=== PATIENT | male | born 1995 | race Caucasian/White ===

== ENCOUNTER 2021-10-28 13:24 | Emergency (ER) | payer BC, SELFPAY ==
[2021-10-28 13:25] VITALS: BP 117/77; PULSE 94; RESP 18; TEMP 36.8; O2SAT 96; BMI 31.5
--- NOTE | 2021-10-28 13:27 | RAD_ITS ---
STUDY: X-RAY CHEST REASON FOR EXAM: Male, 25 years old. SOB TECHNIQUE: AP COMPARISON: None. FINDINGS: There are scattered reticular and consolidative opacities in the right mid lung and right more than left lung base. There is no demonstrated pleural abnormality. Normal size heart. Normal mediastinum and vesta. Normal visualized pulmonary arteries. Normal visualized aortic arch and descending thoracic aorta. Normal visualized thoracic spine. Normal visualized ribs, clavicles, and shoulders. There is no demonstrated abnormality of the visualized soft tissue structures of the upper abdomen. RAD/Chest 1 View IMPRESSION: Patchy pulmonary infiltrates suggesting pneumonia, including viral causes. Electronically Signed: Ky Moody MD (Brooks) at 13:56 EST , Service support ,
--- NOTE | 2021-10-28 15:11 | EX.ED.DYSGE1 ---
HPI History of Present Illness Chief Complaint: Shortness of Breath Informant: patient Narrative Narrative: Patient presents with cough, headache and myalgias. He states he does feel bit short of breath. He started with Covid symptoms on about the . He was tested positive on the . He is also had some intermittent nausea and did vomit once this morning. However, he is drinking fluids now. He has no sputum production or hemoptysis. No leg or arm swelling or pain. No recent travel, surgery, immobilization, personal or family history of DVT or PE. No pleuritic pain. His biggest complaint is that when he takes a deep breath it makes him cough and he has myalgias and headaches. He just overall does not feel well. He denies any medical problems No medicines No allergies No surgeries Non-smoker lives independently. PFSH PFSH Medical History no medical history Home Medications ondansetron 4 mg PO Q8H PRN #10 tab 10/28/21 [Rx Last Taken Unknown] Allergy/AdvReac Type Severity Reaction Status Date / Time No Known Allergies Allergy Verified 10/28/21 13:28 Social History Smoking Status: Never smoker ROS ROS ED Constitutional Constitutional ED: Reports chills, fever(s) and subjective Eyes Eyes: Denies blurry vision ENT ENT ED: Reports rhinorrhea; Denies sore throat Cardiovascular Cardiovascular: Denies chest pain or palpitations Respiratory/Chest Respiratory/Chest: Reports cough and dyspnea; Denies sputum Gastrointestinal Gastrointestinal: Reports nausea and vomiting; Denies abdominal pain or diarrhea Genitourinary Genitourinary ED: Denies dysuria Musculoskeletal Musculoskeletal: Reports myalgias Integumentary Reports rash Neurologic Neurologic: Reports headache(s) Psychiatric Psychiatric: Denies anxiety or depression Endocrine Endocrinology: Denies polydipsia or polyuria Allergic/Immunologic Allergic/Immunologic ED: Denies mouth swelling, tongue swelling or urticaria EXAM Physical Exam Const Vital Signs: 10/28/21 13:25 10/28/21 15:00 Temperature 98.2 F Temperature Source Temporal Pulse Rate 94 Respiratory Rate 18 Respiratory Effort Short of Breath Blood Pressure 117/77 Blood Pressure Mean 90 Pulse Ox 96 Oxygen Delivery Method Room Air Patient sitting on the bed drinking water. He looks comfortable. He does not look dyspneic. I placed him on O2 sat in the room when I walked in. We had him walk next to the bed during my visit. Positive well nourished and well developed General Appearance ED: well developed and NAD; Negative for cyanotic or diaphoretic HEENT Reports moist mucous membranes Negative for trauma Eyes General Eye ED: Negative for pale conjunctiva or scleral icterus Neck no JVD Chest Wall inspection of chest normal Resp normal respiratory effort Resp Narrative: No pain with a deep breath. He does have some mild cold kibe bilaterally. No rales. No wheezing. Occasional mild dry cough while I am in the room. Effort and Inspection: Negative for pain with movement Auscultation: rhonchi; Negative for rales or wheezes Cardio regular rate and regular rhythm GI normal to inspection, nondistended, normoactive bowel sounds and non-tender Palpation: soft Back/Spine no CVA tenderness Extremity normal to inspection General Extremety ED: Negative for edema or tenderness General Extremity: Negative for edema Neuro Sensorium / Orientation: alert Psych mental status grossly normal Skin no rashes or lesions noted MDM MDM MDM Narrative Medical decision making narrative: Patient's x-ray is consistent with Covid. He already has a positive test. During my stay in the room, and the lowest oxygen level I was able to get was 93% and that was briefly. He generally stays at 94%. I do not think he needs admission. Because his BMI is over 25 I will fill out papers for monoclonal therapy. But due to the number of days and heading into a holiday weekend I am not sure he will be able to get this. I will also write for some Zofran as he has had intermittent nausea. Lab Data Attestation: I reviewed the patient's lab results. Radiography Diagnostic Testing: Clinical Impression(s) from Imaging Studies Chest X-Ray 10/28/21 13:27 IMPRESSION: Patchy pulmonary infiltrates suggesting pneumonia, including viral causes. Electronically Signed: Ky Moody MD (Brooks) at 13:56 EST , Service support , Discharge Plan Triage Chief Complaint: Shortness of Breath ED Provider: Jose Lutz Dx/Rx/DC Orders Clinical Impression: Pneumonia due to 2019 novel coronavirus, Nausea & vomiting Instructions: Coronavirus Disease 2019 (COVID-19): Caring for Yourself or Others Prescriptions: New ondansetron 4 mg tablet,disintegrating 4 mg PO Q8H PRN (Reason: nausea and vomiting) Qty: 10 RF: 0 Primary Care Provider: Care Physician,No Primary Referrals: Matty Ireland MD [STAFF PHYSICIAN] - 1 Week if not improving Care Physician,No Primary [Primary Care Provider] - Disposition Disposition: Home, Self Care
== END 2021-10-28 15:49 | disposition home or self-care (01) ==
LOC: ED 15:20
PROVIDERS: Emergency Provider Emergency Medicine
DX: U07.1 COVID-19 (principal); J12.82 Pneumonia due to coronavirus disease 2019; R11.2 Nausea with vomiting, unspecified
CPT/HCPCS: 71045; 87635; 99282; U0005; U0003

== ENCOUNTER 2021-11-01 12:22 | Emergency (ER) | payer BC, SELFPAY ==
[2021-11-01 12:23] VITALS: BP 106/62; PULSE 71; RESP 18; TEMP 36.4; O2SAT 96; BMI 32.5
--- NOTE | 2021-11-01 13:12 | RAD_ITS ---
STUDY: X-RAY CHEST REASON FOR EXAM: Male, 25 years old. SOB TECHNIQUE: AP COMPARISON: 10/28/2021 FINDINGS: There are mildly increased reticular and consolidative opacities in the left more than right lung base. There is no demonstrated pleural abnormality. Normal size heart. Normal mediastinum and vesta. Normal visualized pulmonary arteries. Normal visualized aortic arch and descending thoracic aorta. Normal visualized thoracic spine. Normal visualized ribs, clavicles, and shoulders. There is no demonstrated abnormality of the visualized soft tissue structures of the upper abdomen. RAD/Chest 1 View (Portable) IMPRESSION: Mild increased patchy pulmonary infiltrates suggesting pneumonia, including viral causes. Electronically Signed: Ky Moody MD (Brooks) at 13:24 EST , Service support ,
[2021-11-01 13:47] VITALS: BP 105/86; PULSE 52; RESP 15; TEMP 36.6; O2SAT 98
[2021-11-01 13:49] VITALS: O2SAT 98
--- NOTE | 2021-11-01 14:27 | EKG12_ITS ---
Test Reason : SOB Blood Pressure : / mmHG Vent. Rate : 047 BPM Atrial Rate : 047 BPM P-R Int : 166 ms QRS Dur : 102 ms QT Int : 438 ms P-R-T Axes : 028 088 044 degrees QTc Int : 387 ms Sinus bradycardia with sinus arrhythmia Otherwise normal ECG Confirmed by KATELYNN JOHN, SHALOM ([id number]), news videotape editor LOURDES MORALES ([id number]) on 11/04/2021 9:54:35 AM Referred By: JUAN Confirmed By:SHALOM PACE MD
--- NOTE | 2021-11-01 14:27 | CT_ITS ---
STUDY: CTA CHEST REASON FOR EXAM: Male, 25 years old. hemoptysis, + covid RADIATION DOSAGE (If Supplied By Facility): CTDIvol = ( 11.96 ) mGy, DLP = ( 530.19 ) mGycm TECHNIQUE: The examination was performed with the intravenous administration of IV 100mL Isovue-370. Post-processing of the angiographic images was performed, with multiplanar reformation and 3D reconstruction. Individualized dose optimization techniques were used for this CT. COMPARISON: None. FINDINGS: Normal enhancement of the main pulmonary artery and right and left pulmonary arteries. Normal enhancement of the bilateral peripheral pulmonary arteries. There is no demonstrated pulmonary embolism. Normal thoracic aorta and visualized great vessels. There is no demonstrated aortic dissection. Normal heart and pericardium. Normal mediastinum. Normal hilar regions. Normal visualized trachea and bronchi. The lungs are well expanded. Multifocal infiltrates with features commonly reported with COVID pneumonia. Normal pleura. Normal chest wall structures. Normal osseous structures. Normal visualized upper abdomen. CT/CTA Chest W/WO Contrast IMPRESSION: 1. No central or segmental pulmonary embolism. 2. Multifocal groundglass opacity dominant infiltrates with features commonly reported with COVID pneumonia. Electronically Signed: Ky Moody MD (Brooks) at 15:40 EST , Service support ,
--- NOTE | 2021-11-01 14:28 | EX.ED.DYSGE1 ---
HPI History of Present Illness Chief Complaint: Shortness of Breath Informant: patient Onset/Context/Timing Onset: Weeks Context: Gradual Onset Current Severity: Mild Maximum Severity: Mild Narrative Narrative: Patient presents secondary to hemoptysis. Patient was diagnosed with Covid on October 23 after having 3 days of symptoms. He states over the past 2 days he has had blood in his mucus when he coughs. He has a constant chest pressure with occasional sharp pain in the left chest. He does feel somewhat more short of breath. He is eating and drinking well. PFSH PFSH Medical History no medical history no medical history Home Medications ondansetron 4 mg PO Q8H PRN #10 tab 10/28/21 [Rx Last Taken Unknown] benzonatate 200 mg PO TID PRN #20 cap 11/01/21 [Rx Last Taken Unknown] Allergy/AdvReac Type Severity Reaction Status Date / Time No Known Allergies Allergy Verified 11/01/21 12:22 Social History Smoking Status: Never smoker ROS ROS ED Constitutional Constitutional ED: Denies chills or fever(s) Eyes Eyes: Denies change in vision ENT ENT ED: Denies sore throat Cardiovascular Cardiovascular: Reports chest pain Respiratory/Chest Respiratory/Chest: Reports cough, dyspnea and sputum Gastrointestinal Gastrointestinal: Denies abdominal pain, diarrhea, nausea or vomiting Musculoskeletal Musculoskeletal: Denies back pain or neck pain Integumentary Denies rash Neurologic Neurologic: Denies headache(s) or weakness Allergic/Immunologic Allergic/Immunologic ED: Denies urticaria EXAM Physical Exam Const Vital Signs: 11/01/21 12:23 11/01/21 13:47 11/01/21 13:49 Temperature 97.6 F L 97.8 F Temperature Source Temporal Oral Pulse Rate 71 52 L Respiratory Rate 18 15 Respiratory Effort Normal Non-Labored Respiratory Depth Normal Respiratory Pattern Normal Blood Pressure 106/62 105/86 H Blood Pressure Mean 76 92 Pulse Ox 96 98 Oxygen Delivery Method Room Air Room Air Room Air Positive well nourished and well developed General Appearance ED: well developed HEENT Reports moist mucous membranes Eyes PERRL and EOMs intact bilaterally Neck supple Chest Wall inspection of chest normal and palpation of chest normal Resp normal respiratory effort and clear to auscultation bilaterally Cardio regular rate and regular rhythm GI non-tender Auscultation: hypoactive bowel sounds Palpation: soft Extremity normal to inspection Neuro oriented x3 Sensorium / Orientation: alert Skin no rashes or lesions noted MDM MDM MDM Narrative Medical decision making narrative: EKG, lab work, CTA chest obtained. Lab Data Attestation: I reviewed the patient's lab results. Labs: Laboratory Results - last 24 hr 11/01/21 11/01/21 11/01/21 14:48 14:48 14:48 WBC 5.2 RBC 4.65 Hgb 15.0 Hct 45.4 MCV 97.6 H MCH 32.3 H MCHC 33.0 RDW Std Deviation 41.2 RDW Coeff of Carlyn 11.4 L Plt Count 163 MPV 9.1 Immature Gran % (Auto) 0.600 Neut % (Auto) 64.7 Lymph % (Auto) 26.4 Blount % (Auto) 7.1 Eos % (Auto) 0.8 Baso % (Auto) 0.4 Absolute Neuts (auto) 3.4 Absolute Lymphs (auto) 1.37 Nucleated RBC % 0 Reactive Lymphocytes RARE PT 13.6 INR 1.1 APTT 29.7 Sodium 141 Potassium 3.9 Chloride 104 Carbon Dioxide 30.0 Anion Gap 7 BUN 12 Creatinine 0.95 Estim Creat Clear Calc 117.83 Est GFR (MDRD) Af Amer 123 Est GFR (MDRD) Non-Af 102 BUN/Creatinine Ratio 12.7 Glucose 97 Calcium 9.1 Radiography Chest X-Ray - ED: 1 View, Read by ED Physician, Right Infiltrate and Left Infiltrate Diagnostic Testing: Clinical Impression(s) from Imaging Studies Chest X-Ray 11/01/21 13:12 IMPRESSION: Mild increased patchy pulmonary infiltrates suggesting pneumonia, including viral causes. Electronically Signed: Ky Moody MD (Brooks) at 13:24 EST , Service support , Chest CTA 11/01/21 14:27 IMPRESSION: 1. No central or segmental pulmonary embolism. 2. Multifocal groundglass opacity dominant infiltrates with features commonly reported with COVID pneumonia. Electronically Signed: Ky Moody MD (Brooks) at 15:40 EST , Service support , EKG Initial EKG: Attestation: I personally reviewed and interpreted this EKG as follows: Interpretation: Sinus Bradycardia (Sinus bradycardia at 47 bpm. No acute ischemia.) Treatment and Re-Evaluation Comments:: Lab work reviewed and largely unremarkable. EKG unremarkable. CTA reveals no evidence of PE. He does have bilateral viral pneumonia consistent with Covid. Patient is already on day approximately 14 of symptoms. He will continue supportive care at home. I will write him for Judy Robertson to help with cough. Discharge Plan Triage Chief Complaint: Shortness of Breath ED Provider: Mamta Serra Dx/Rx/DC Orders Clinical Impression: Pneumonia due to 2019 novel coronavirus, Hemoptysis Instructions: Coronavirus Disease 2019 (COVID-19): Caring for Yourself or Others, ED Hemoptysis Prescriptions: New benzonatate 200 mg capsule 200 mg PO TID PRN (Reason: cough) Qty: 20 RF: 0 No Action ondansetron 4 mg tablet,disintegrating 4 mg PO Q8H PRN (Reason: nausea and vomiting) Qty: 10 RF: 0 Primary Care Provider: Jonel Conklin Referrals: Jonel Conklin MD [Primary Care Provider] - 1-2 Weeks Disposition Disposition: Home, Self Care Discharge Location: [facility] Discharge Date/Time: 11/01/21 16:23
[2021-11-01 15:00] LABS: Absolute Lymphocyte Count 1.37 X10^3/uL (0.83-4.51); Absolute Neutrophil Count 3.4 X10^3/uL (2.0-7.7); Basophil# 0.02 X10^3/uL; Basophil% 0.4 % (0-1); Eosinophil# 0.04 X10^3/uL; Eosinophils% 0.8 % (0-5); Hematocrit 45.4 % (40-54); Lymphocyte # 1.37 X10^3/ul (0.83-4.51); Lymphocyte % 26.4 % (19-41); Mean Corpuscular Hgb 32.3 pg (27.0-32.0); Mean Corpuscular Volume 97.6 fL (80-94); Mean Platelet Vol. 9.1 fl (6.2-12.0); Monocyte# 0.37 X10^3/uL; Monocyte% 7.1 % (0-10); NRBC Flagged by Analyzer 0 % (0-5); Neutrophil # 3.35 X10^3/uL (2.7-7.7); Neutrophil % 64.7 % (47-70); POSITIVE MORPHOLOGY YES; Platelet Count 163 K/mm3 (150-450); RBC Distribution Width CV 11.4 % (11.6-14.6); RBC Distribution Width SD 41.2 fl (35.1-43.9); Red Blood Count 4.65 M/mm3 (4.6-6.2); White Blood Count 5.2 K/mm3 (4.4-11.0)
[2021-11-01 15:01] LABS: Differential Indicated SCAN CRITERIA MET
[2021-11-01 15:08] LABS: Partial Thromboplast Time 29.7 Seconds (24.1-36.2)
[2021-11-01 15:10] LABS: Anion Gap 7 (5-15); BUN 12 mg/dL (7-18); BUN/Creat Ratio 12.7 RATIO (10-20); Calcium,Total 9.1 mg/dL (8.5-10.1); Chloride 104 mmol/L (98-107); Creatinine, Serum 0.95 mg/dL (0.70-1.30); EST Glomerular Filtration Rate 102 mL/min (>60); Est Glom Filt Rate - Afr Amer 123 mL/min (>60); Estimated Creatinine Clearance 117.83 ml/min; Glucose 97 mg/dL (74-106); International Normalized Ratio 1.1; Potassium 3.9 mmol/L (3.5-5.1); Prothrombin Time (Protime)PT. 13.6 SECONDS (11.7-14.9); Sodium Level 141 mmol/L (136-145)
[2021-11-01 15:25] LABS: Reactive Lymphocyte RARE
[2021-11-01 16:34] VITALS: BP 105/52; PULSE 65
== END 2021-11-01 16:38 | disposition home or self-care (01) ==
LOC: ED 14:39
PROVIDERS: Emergency Provider Emergency Medicine; PCP Family Medicine; Visit Provider Emergency Medicine
DX: U07.1 COVID-19 (principal); J12.82 Pneumonia due to coronavirus disease 2019; R04.2 Hemoptysis
CPT/HCPCS: 71045; 71275; 80048; 85025; 85610; 85730; 93005; 94760; 99284; J7030; Q9967

== ENCOUNTER 2025-04-24 14:05 | Emergency (ER) | payer OTHER, BC, SELFPAY ==
[2025-04-24 14:07] VITALS: BP 129/85; PULSE 92; RESP 18; TEMP 36.9; O2SAT 100; BMI 34.4
--- NOTE | 2025-04-24 14:26 | EDS_ITS ---
HPI <JOSE GUADALUPE Quach - Last Filed: 04/24/25 16:30> History of Present Illness Chief Complaint: Laceration Narrative Narrative: Patient resenting today with a laceration to his left index finger that he got this afternoon at work. He was using a band saw to cut a bolt when he accidentally cut his finger. He is right-handed. He is on no blood thinners. He is unsure of his last tetanus update. PFSH <JOSE GUADALUPE Quach - Last Filed: 04/24/25 16:30> PFSH Home Medications ?Medication ?Instructions ?Recorded ?Last Taken ?Type ondansetron 4 mg disintegrating 4 mg PO Q8H PRN nausea and 10/28/21 Unknown Rx tablet vomiting #10 tabs benzonatate 200 mg capsule 200 mg PO TID PRN cough #20 caps 11/01/21 Unknown Rx cephalexin 500 mg capsule 500 mg PO TID 7 days #21 cap s 04/24/25 Unknown Rx oxycodone-acetaminophen 5 mg-325 1 tab PO Q6H 2 days # 8 tabs 04/24/25 Unknown Rx mg tablet (Percocet) Allergy/AdvReac Type Severity Reaction Status Date / Time No Known Allergies Allergy Verified 04/24/25 14:07 Surgical History (Updated 04/24/25 @ 15:05 by Tianna Mallory) History of hand surgery Social History Smoking Status: Never smoker ROS <JOSE GUADALUPE Quach - Last Filed: 04/24/25 16:30> ROS ED Constitutional Constitutional ED: Denies chills or fever(s) Cardiovascular Cardiovascular: Denies chest pain Respiratory/Chest Respiratory/Chest: Denies dyspnea Gastrointestinal Gastrointestinal: Denies abdominal pain, nausea or vomiting Musculoskeletal Musculoskeletal: Reports other Details: Left index finger pain Integumentary Reports laceration Neurologic Neurologic: Denies paresthesias EXAM <JOSE GUADALUPE Quach - Last Filed: 04/24/25 16:30> Physical Exam Const Vital Signs: 04/24/25 14:07 Temperature 98.4 F Temperature Source Oral Pulse Rate 92 Respiratory Rate 18 Blood Pressure 129/85 H Blood Pressure Mean 99 Pulse Ox 100 Oxygen Delivery Method Room Air Positive well nourished, well developed and no apparent distress General Appearance ED: well developed HEENT Reports normocephalic and head/scalp atraumatic Mouth ED: Yes moist mucous membranes normal Eyes PERRL and EOMs intact bilaterally Neck full ROM and supple Chest Wall inspection of chest normal Resp normal respiratory effort and clear to auscultation bilaterally Cardio regular rate and regular rhythm Back/Spine normal ROM and normal to inspection Extremity normal to inspection and full ROM Extremity Narrative: 3 cm full-thickness linear laceration across the dorsal aspect of the left index finger above the DIP joint. Patient is able to flex and extend fully at the MCP, PIP, and DIP joints. No obvious tendon laceration. Right radial pulse 2+, good cap refill, sensation intact. Neuro oriented x3, CN's II-XII intact bilaterally, moves all extremities, no focal motor deficits and no sensory deficits noted Sensorium / Orientation: awake and alert Psych mental status grossly normal and thought process normal Skin Skin Narrative: Aside from finger laceration no other rashes or lesions noted [facility] <JOSE GUADALUPE Quach - Last Filed: 04/24/25 16:30> [facility] Narrative Medical decision making narrative: Patient presenting today with a laceration to his left index finger just above the DIP joint after cutting it with a band saw. He is neurovascularly intact. He is able to flex and extend at the DIP joint. X-ray was obtained and does show a fracture through the mid distal phalanx. The laceration was copiously irrigated with saline and cleaned with chlorhexidine, it was explored, no obvious tendon laceration. I did touch base with Dr. Irizarry, he will follow-up with him in the office. He was started on Keflex here. I did offer analgesia and he declined. I will give him a prescription for Keflex and Percocet. RICE instructions encouraged. Wound care instructions discussed. Reasons to return were discussed. Patient discharged home stable condition. I have personally performed a face to face assessment of the patient and have reviewed the MANUEL Note. I performed a substantive portion of the visit including all aspects of the following. My carrasco findings include: History is [patient sustained a laceration to his left index finger while using a band saw at work. He is right-hand dominant. Unsure of his last tetanus shot. Patient thinks that the wound went down to the bone.] Exam is [JHONNY-SONIDO, EOMI. Cranial nerves II through XII grossly intact. TMs clear. Mucous membranes moist. No adenopathy. Cardiovascular-regular rate and rhythm without murmur or ectopy Lungs-clear to auscultation, chest wall stable without crepitus or subcu emphysema Abdomen-normoactive bowel sounds, soft, nontender, no rebound or rigidity, no peritoneal signs. Extremities-intact ?4. Left index finger-patient has a 3 cm laceration over the dorsal aspect of the distal phalanx proximal to the nail. Somewhat limited extension of the DIP secondary to pain and swelling. Neurovascular intact distally. He is able to flex at the DIP. Medical Decison Making [patient with a laceration to his left index finger. Concern for possible extensor tendon laceration. Will obtain an x-ray. Will perform a digital block. Will washout the wound and inspect for tendon injury.] I inspected the wound after patient had digital block performed and good hemostasis with sterile rubber band. The laceration goes down through the distal phalanx however do not appreciate involvement of the extensor tendon as I feel the laceration and fracture is distal to the tendon insertion. Please see procedure note by physician starch treating assistant. Other additions or changes: [None] <Dr. Jacque Smith, DO - Last Filed: 04/24/25 15:34> [facility] MDM Narrative Medical decision making narrative: I have personally performed a face to face assessment of the patient and have reviewed the MANUEL Note. I performed a substantive portion of the visit including all aspects of the following. My carrasco findings include: History is [patient sustained a laceration to his left index finger while using a band saw at work. He is right-hand dominant. Unsure of his last tetanus shot. Patient thinks that the wound went down to the bone.] Exam is [HEENT-PERRLA, EOMI. Cranial nerves II through XII grossly intact. TMs clear. Mucous membranes moist. No adenopathy. Cardiovascular-regular rate and rhythm without murmur or ectopy Lungs-clear to auscultation, chest wall stable without crepitus or subcu emphysema Abdomen-normoactive bowel sounds, soft, nontender, no rebound or rigidity, no peritoneal signs. Extremities-intact ?4. Left index finger-patient has a 3 cm laceration over the dorsal aspect of the distal phalanx proximal to the nail. Somewhat limited extension of the DIP secondary to pain and swelling. Neurovascular intact distally. He is able to flex at the DIP. Medical Decison Making [patient with a laceration to his left index finger. Concern for possible extensor tendon laceration. Will obtain an x-ray. Will perform a digital block. Will washout the wound and inspect for tendon injury.] I inspected the wound after patient had digital block performed and good hemostasis with sterile rubber band. The laceration goes down through the distal phalanx however do not appreciate involvement of the extensor tendon as I feel the laceration and fracture is distal to the tendon insertion. Please see procedure note by physician starch treating assistant. Other additions or changes: [None] Radiography Diagnostic Testing: Three-view x-rays of the left index finger obtained interpreted by myself as fracture through the mid distal phalanx. Radiology in agreement. Procedures <JOSE GUADALUPE Quach - Last Filed: 04/24/25 16:30> Lacerations Laceration: Length: 3 cm Depth: Sub Q Shape: Linear Prep: Chlorhexadine Laceration repair: Digital block, Irrigated and Lidocaine Number of Sutures/[place]: 8 Suture Information: Ethilon, Simple and 4-0 Discharge Plan Triage Chief Complaint: Laceration ED Midlevel Provider: Marcia Paulson ED Provider: Jacque Smith Dx/Rx/DC Orders Clinical Impression: Open fracture of finger, Finger laceration Instructions: Finger Or Toe Fx, ED Laceration Extremity Prescriptions: New cephalexin 500 mg capsule 500 mg PO TID 7 Days Qty: 21 0RF oxycodone-acetaminophen [Percocet] 5-325 mg tablet 1 tab PO Q6H 2 Days Qty: 8 0RF No Action ondansetron 4 mg tablet,disintegrating 4 mg PO Q8H PRN (Reason: nausea and vomiting) Qty: 10 0RF benzonatate 200 mg capsule 200 mg PO TID PRN (Reason: cough) Qty: 20 0RF Primary Care Provider: Jonel Conklin Referrals: Jonel Conklin MD [Primary Care Provider] - Alex Irizarry MD [Med Staff - Active Staff] - 7 Days for suture removal Activity Restrictions/Additional Instructions: Follow-up with Dr. Irizarry, return for any signs of infection. Print Language: Palauan Disposition Disposition: Home, Self Care Discharge Date/Time: 04/24/25 16:06
--- NOTE | 2025-04-24 14:30 | RAD_ITS ---
PROCEDURE: FINGER(S) MIN 2 VIEWS 04/24/2025 REASON FOR EXAM: LACERATION INDEX FINGER TECHNIQUE: FINGER(S) MIN 2 VIEWS COMPARISON: None FINDINGS: Bones: Nondisplaced oblique fracture of the base of the distal phalanx of the index finger. Joints: Unremarkable Soft tissues: Soft tissue injury overlying the fracture site. Other: RAD/Finger(s) Min 2 Views IMPRESSION: Nondisplaced oblique fracture at the base of the distal phalanx of the index fi nger with overlying soft tissue laceration. Reading Location: [id number]
[2025-04-24] MEDS: Diphth,Pertuss(Acell),Tet Vac 0.5 ML Vial IM (15:08)
[2025-04-24] MEDS: Lidocaine 1% (20 ml mdv) 20 ML Vial 10 ML INFILT (15:21)
[2025-04-24] MEDS: Cephalexin 250 MG Capsule 500 MG PO (16:03)
[2025-04-24 16:05] VITALS: BP 122/88; PULSE 90; RESP 16; TEMP 37; O2SAT 99
== END 2025-04-24 16:06 | disposition home or self-care (01) ==
PROVIDERS: Emergency Provider Emergency Medicine; PCP Family Medicine; Visit Provider Emergency Medicine
DX: S62.661B Nondisplaced fracture of distal phalanx of left index finger, initial encounter for open fracture (principal); W31.2XXA Contact with powered woodworking and forming machines, initial encounter; Z23 Encounter for immunization
CPT/HCPCS: 12002; 73140; 90471; 90715; 99283